=== PATIENT | male | born 1995 | race Caucasian/White ===

== ENCOUNTER 2019-03-09 09:51 | Outpatient (CLI) | payer OTHER ==
--- NOTE | 2019-03-28 11:09 | Diagnostic Imaging Report ---
[facility] [address] [facility] [address] [address] Report Submission Date: Mar 09, 2019 9:58:47 AM CDT Patient Study Name: LATOSHA RACHEL Date: Mar 09, 2019 9:46:58 AM CDT Modality Type: DX Gender: M Description: CHEST 2VIEW : 89 Institution: [facility] Physician: [facility] Exam: Chest two views. History: Latent TB. No previous studies are available for comparison. Lung ventura are well aerated without elza consolidation or effusion. No cavitary lesions are seen. No hilar adenopathy is noted. Heart and mediastinal contour are normal. Impression: No radiographic signs of tuberculosis. Electronically signed on Mar 09, 2019 9:58:47 AM CDT by: Nelson THOMPSON
== END 2019-03-09 10:10 ==
LOC: RAD 09:51
PROVIDERS: ATTEND Family Medicine
DX: Z22.7 Latent tuberculosis (principal)
CPT/HCPCS: 71020; 71046